=== PATIENT | female | born 1985 | race African-American/Black ===

== ENCOUNTER 2022-04-18 01:52 | Emergency (ER) | payer MEDICAID ==
[~2022-04-18] VITALS: Ht 162.6 cm; Wt 77.0 kg
[2022-04-18 02:04] VITALS: BP 140/92
[2022-04-18] MEDS ORDERED: IBUP-2029 MT (10:19)
== END 2022-04-18 10:22 | disposition home or self-care (01) ==
LOC: ER 01:52
DX: S99.911A Unspecified injury of right ankle, initial encounter (principal); Y04.0XXA Assault by unarmed brawl or fight, initial encounter; Y93.89 Activity, other specified; Y92.89 Other specified places as the place of occurrence of the external cause; Y99.8 Other external cause status
CPT/HCPCS: 73610; 99283

== ENCOUNTER 2024-03-12 13:06 | Emergency (ER) | payer MEDICAID ==
[~2024-03-12] VITALS: Ht 167.6 cm; Wt 72.6 kg
[~2024-03-12 13:06] MED LIST: IBUP-2029 MT
[2024-03-12 13:25] VITALS: O2SAT 100
[2024-03-12] MEDS ORDERED: CLOT113C TP (13:51)
[2024-03-12 14:09] VITALS: BP 110/76; PULSE 74; RESP 18; TEMP 37.1; O2SAT 100
== END 2024-03-12 14:10 | disposition home or self-care (01) ==
LOC: ER 13:13
DX: B37.2 Candidiasis of skin and nail (principal)
CPT/HCPCS: 99282